=== PATIENT | male | born 1980 | race African-American/Black ===

== ENCOUNTER 2017-05-21 08:31 | Emergency (ER) | payer SELFPAY ==
[~2017-05-21] VITALS: Ht 182.9 cm; Wt 81.5 kg
[~2017-05-21 08:31] MED LIST: FAMO20 PO; HYDR10SO PO; XANA2TAB2 PO
[2017-05-21 08:34] VITALS: BP 134/82; PULSE 99; RESP 14; TEMP 98.7; O2SAT 100
--- NOTE | 2017-05-21 09:58 | PD ---
HPI Chief Complaint: Cold / Flu Symptoms Time Seen by Provider: 09:57 Travel History International Travel<30 days: No Contact w/Intl Traveler<30days: No Traveled to known affect area: No History of Present Illness HPI 37-year-old male presents to emergency Department with complaint of body aches, headache, chills, cough, nasal congestion, throat pain 2 days. Unknown fever. Reports chills. His brother has the flu and has been admitted here at [place] with pneumonia also. He has been here with his brother and staying with him. Reports itchy rash to his entire body that just developed. Denies airway edema, swelling of his tongue. Reports shortness of breath, but that was before the rash onset. Denies new exposures to lotions, soaps, detergents, medications, perfumes, environmental exposures. Denies chest pain, chest tightness. Has not taken any medications or tried any treatments to alleviate his symptoms. No known aggravating or relieving factors. Symptoms are mild-to- moderate in severity. No known allergies. No primary care provider. No significant past medical history. Has no medical complaints. No other modifying factors or associated signs and symptoms. [facility] Past Medical History Anxiety: Yes Diminished Hearing: No Hypertension: Yes Past Surgical History Oral Surgery: Yes (ROOT CANAL AND CAPPING. PT ADMITTED LAST MONTH FOR SEVERE CARRIES) Social History Alcohol Use: No Tobacco Use: Yes (/2 PPD) Substance Use: Yes (HX MARIJUANA) Allergies-Medications (Allergen,Severity, Reaction): Coded Allergies: No Known Allergies (Verified Adverse Reaction, Unknown, 05/21/17) Reported Meds & Prescriptions Reported Meds & Active Scripts Active Ventolin Hfa 18 GM Inh (Albuterol Sulfate) 90 Mcg/Act Aer 2 Puff INH Q4-6H PRN Deltasone (Prednisone) 20 Mg Tab 40 Mg PO DAILY 4 Days start 05/22/2017 Ibuprofen 800 Mg Tab 800 Mg PO Q6HR PRN Review of Systems Except as stated in HPI: all other systems reviewed are Neg Physical Exam Narrative GENERAL: Well-nourished, well-developed black female patient, in no acute distress; afebrile, nontoxic-appearing SKIN: Warm and dry. No rash. HEAD: Atraumatic. Normocephalic. EYES: Pupils equal and round. No scleral icterus. No injection or drainage. ENT: Mucosa pink and moist. No erythema or exudates. No uvular edema. No uvular , palatal, or tonsillar deviation. Airway patent. EARS: Bilateral pinnae and external canals appear within normal limits. Bilateral tympanic membranes without erythema, dullness or perforation. NECK: Trachea midline. No lymphadenopathy. CARDIOVASCULAR: Regular rate and rhythm. No murmur appreciated. RESPIRATORY: No accessory muscle use. Clear to auscultation. Breath sounds equal bilaterally. No retractions or tachypnea. GASTROINTESTINAL: Abdomen soft, non-tender, nondistended. Hepatic and splenic margins not palpable. Bowel sounds are active 4 quadrants. MUSCULOSKELETAL: No obvious deformities. No clubbing. No cyanosis. No edema. NEUROLOGICAL: Awake and alert. Oriented 3. No obvious cranial nerve deficits. Motor grossly within normal limits. Normal speech. Moves all extremities. 5/5 strength to all extremities. PSYCHIATRIC: Appropriate mood and affect; insight and judgment normal. Data Data Last Documented VS Vital Signs Date Time Temp Pulse Resp B/P (MAP) Pulse Ox O2 Delivery O2 Flow Rate FiO2 05/21/17 12:42 85 18 128/70 (89) 99 05/21/17 11:05 Room Air 05/21/17 08:34 98.7 Orders Orders Influenzae A/B Antigen (05/21/17 08:46) Chest, Single Ap (05/21/17 10:03) Prednisone (Deltasone) (05/21/17 10:15) Diphenhydramine Inj (Benadryl Inj) (05/21/17 10:15) Albuterol Neb (Albuterol Neb) (05/21/17 10:15) Ibuprofen (Motrin) (05/21/17 10:15) Ondansetron Odt (Zofran Odt) (05/21/17 10:15) Group A Rapid Strep Screen (05/21/17 10:08) Strep Culture (Group A) (05/21/17 10:45) Ed Discharge Order (05/21/17 11:54) MDM Medical Decision Making Medical Screen Exam Complete: Yes Emergency Medical Condition: Yes Medical Record Reviewed: Yes Differential Diagnosis Influenza, viral illness, pneumonia Narrative Course 37-year-old male with cold/flu symptoms. His brother is sick with influenza and pneumonia and is hospitalized here at [place] and he has been with him. Influenza, rapid strep, chest x-ray, DuoNeb ordered. 1039: Influenza negative. Chest x-ray with no acute disease. 1154: Rapid strep negative. Ventolin inhaler, Deltasone, ibuprofen prescribed for home. Discussed viral illness and symptomatic management. On reexamination the patient denies shortness of breath. Lungs are clear and equal throughout with improved lung sounds in the bases. Instructed patient to follow up with primary care provider. Patient verbalizes understanding and agreement with treatment plan. Patient is medically cleared and stable for discharge. Discussed reasons to return to the emergency department. Patient agrees with treatment plan. The patients vital signs are stable and the patient is stable for outpatient follow-up and treatment. Patient discharged home, stable and in no acute distress. Diagnosis Primary Impression: Viral illness Additional Impressions: Viral exanthem Exposure to the flu Referrals: [facility] Primary Care Physician Patient Instructions: Cold Symptoms (ED), General Instructions, Influenza (ED) , Safe Use of Cough and Cold Medicines (ED), Viral Exanthem (ED) Departure Forms: Tests/Procedures, Work Release Enter return to work date: May 24, 2017 Special Instructions: Or when fever free for 24 hours Additional Instructions: Use Albuterol inhaler as prescribed Take oral steroids as prescribed and complete full course [id number] decongestants or antihistamines as directed and as needed for symptom management Your cough can last 4-6 weeks Drink plenty of fluids to prevent dehydration Use hot air humidifier to decrease cough exacerbation Turn off ceiling fans and sleep with head of bed elevated Avoid triggers such as second hand smoke, dust, known allergens Follow-up with your primary care provider Return to the emergency department immediately with worsening of symptoms Med/Other Pt SpecificInfo: Prescription(s) given Scripts Albuterol 18 GM Inh (Ventolin Hfa 18 GM Inh) 90 Mcg/Act Aer 2 PUFF INH Q4-6H Y for SOB/WHEEZING, #1 INHALER 0 Refills Prov: Mariia Murphy LAY OUT FORMER 05/21/17 Prednisone (Deltasone) 20 Mg Tab 40 MG PO DAILY for 4 Days, #8 TAB 0 Refills start 05/22/2017 Prov: Mariia Murphy LAY OUT FORMER 05/21/17 Ibuprofen (Ibuprofen) 800 Mg Tab 800 MG PO Q6HR Y for PAIN, #30 TAB 0 Refills Prov: Mariia Murphy 05/21/17 Disposition: 01 DISCHARGE HOME Condition: Stable Mariia Murphy May 21, 2017 09:58
[2017-05-21] MEDS ORDERED: diphenhydrAMINE HCL 50 MG/ML VIAL IM ONE (10:15)
[2017-05-21] MEDS ORDERED: IBUPROFEN 800 MG TAB PO ONE (10:15)
[2017-05-21] MEDS ORDERED: ONDANSETRON ODT 4 MG TAB PO ONE (10:15)
[2017-05-21] MEDS ORDERED: predniSONE 20 MG TAB PO ONE (10:15)
[2017-05-21] MEDS ORDERED: RESP: ALBUTEROL 2.5 MG/3 ML NEB (SCH) INH ONE (10:15)
--- NOTE | 2017-05-21 10:33 | RADRPT ---
EXAM DATE/TIME: 05/21/2017 10:08 [place] COMPARISON: No previous studies available for comparison. INDICATIONS : Flu like symptoms and shortness of breath. MEDICAL HISTORY : Hypertension. SURGICAL HISTORY : None. ENCOUNTER: Initial ACUITY: 2 days PAIN SCORE: 0/10 LOCATION: Bilateral chest FINDINGS: A single view of the chest demonstrates the lungs to be symmetrically aerated without evidence of mas s, infiltrate or effusion. The cardiomediastinal contours are unremarkable. Osseous structures are intact. CONCLUSION: No acute disease. Javed Vickers MD FACR on May 21, 2017 at 10:31 Board Certified Radiologist. This report was verified electronically.
[2017-05-21] MEDS ORDERED: PRED-503 PO (10:41)
[2017-05-21] MEDS ORDERED: VENTAER INH (10:41)
[2017-05-21] MEDS ORDERED: IBUP1TAB7 PO (10:41)
[2017-05-21 12:42] VITALS: BP 128/70
== END 2017-05-21 12:45 | disposition home or self-care (01) ==
LOC: NEPD 08:31
DX: B34.9 Viral infection, unspecified (principal); B09 Unspecified viral infection characterized by skin and mucous membrane lesions; F41.9 Anxiety disorder, unspecified; I10 Essential (primary) hypertension; F17.200 Nicotine dependence, unspecified, uncomplicated; Z20.828 Contact with and (suspected) exposure to other viral communicable diseases; Z79.899 Other long term (current) drug therapy
CPT/HCPCS: 71045; 87081; 87804; 87880; 94664; 96372; 99284; J1200; J7512; J7613